=== PATIENT | female | born 1975 | race Caucasian/White ===

== ENCOUNTER 2024-10-14 12:19 | Emergency (ER) | payer OTHER ==
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
[2024-10-14 13:05] VITALS: BP 173/79; TEMP 97.1; O2SAT 100
== END 2024-10-14 12:40 | disposition home or self-care (01) ==
LOC: ER 12:19
DX: S29.012A Strain of muscle and tendon of back wall of thorax, initial encounter (principal); M62.838 Other muscle spasm; V43.52XA Car driver injured in collision with other type car in traffic accident, initial encounter; Y93.89 Activity, other specified; Y92.410 Unspecified street and highway as the place of occurrence of the external cause
CPT/HCPCS: 99281